=== PATIENT | female | born 1980 | race Asian ===

== ENCOUNTER 2023-10-28 11:29 | Day surgery (SDC) | payer OTHER ==
[2023-10-28] MEDS ORDERED: RT ADVAIR 228 DISKUS IH (11:51)
[2023-10-28] MEDS ORDERED: SYNTHROID0.1 MG/TAB PO (11:53)
[2023-10-28] MEDS ORDERED: ZOLOFT 50MG50 MG PO (11:53)
[2023-10-28] MEDS ORDERED: ALLEGRA 180MG180 MG PO (11:54)
[2023-10-28 14:02] VITALS: BP 102/70; PULSE 83; TEMP 97.1
[2023-10-28 14:15] VITALS: BP 104/68; PULSE 87
[2023-10-28 14:30] VITALS: BP 97/70; PULSE 72
[2023-10-28 14:45] VITALS: BP 100/60; PULSE 66
--- NOTE | 2023-10-28 14:52 | NUR ---
1402- PATIENT RETURNS [place] [facility] [place] [facility] [place] CART. PT AWAKE AND ALERT. RESPIRATIONS UNLABORED. AMBULATED TO RECLINER CHAIR WITH 2:1 SBA. PT DENIES NAUSEA OR ABDOMINAL PAIN. HOOKED UP TO MONITOR AND VS OBTAINED. CALL LIGHT AT SIDE AND PRESENT. 1413- DR. VILLELA GAVE THIS NURSE VERBAL ORDERS TO ALLOW THE PATIENT TO EAT WHATEVER SHE CAN TOLERATE. PATIENT REQUESTED AND TOLERATING SPRITE AND A SNACK OF MUFFIN AND JELLO WITHOUT NAUSEA, DIFFICULTY SWALLOWING, OR ABD PAIN. 1418- DR. VILLELA IN ROOM SPEAKING WITH PATIENT. 1422- D/C INSTRUCTIONS REVIEWED WITH PATIENT. PT VERBALIZED UNDERSTANDING AND A COPY OF INSTRUCTIONS PROVIDED IN D/C FOLDER. 1440- PATIENT DRESSES SELF. 1452- PT DENIES ANY PAIN. PATIENT DISCHARGED FROM UNIT VIA W/C TO A PERSONAL VEHICLE. PT LEFT HOSPITAL IN STABLE CONDITION.
== END 2023-10-28 14:52 | disposition home or self-care (01) ==
LOC: SDCO 11:29
DX: K83.9 Disease of biliary tract, unspecified (principal); R14.3 Flatulence; R79.89 Other specified abnormal findings of blood chemistry; K80.50 Calculus of bile duct without cholangitis or cholecystitis without obstruction
CPT/HCPCS: C1769; J2704; J7120; Q9967